=== PATIENT | female | born 2000 | race Two or more races ===

== ENCOUNTER 2020-05-03 14:00 | Inpatient (IN) | payer OTHER ==
[~2020-05-03] VITALS: Ht 170.2 cm; Wt 88.3 kg
--- NOTE | 2020-05-03 14:53 | NUR ---
INSPECTOR FILTERS: PT AMBULATORY TO ROOM FROM LOBBY WITH STEADY GAIT WITH MILL OPERATOR HELPER
[2020-05-03 15:14] LABS: BASOPHILS # (AUTO) 0.01 x10^3/uL (0-0.1); BASOPHILS % (AUTO) 0 % (0-1); EOSINOPHILS # (AUTO) 0.12 x10^3/uL (0-0.4); EOSINOPHILS % (AUTO) 2 % (1-7); LYMPHOCYTES # (AUTO) 1.63 x10^3/uL (1-3.4); LYMPHOCYTES % (AUTO) 23 % (22-44); MD NO; MEAN CORPUSCULAR HEMOGLOBIN 29.5 pg (27.0-34.8); MEAN CORPUSCULAR HGB CONC 33.1 g/dL (32.4-35.8); MEAN PLATELET VOLUME 8.9 fL (7.4-10.4); MONOCYTES # (AUTO) 0.58 x10^3/uL (0.2-0.8); MONOCYTES % (AUTO) 8 % (2-9); NEUTROPHILS # (AUTO) 4.88 x10^3/uL (1.8-6.8); NEUTROPHILS % (AUTO) 68 % (42-75); PLATELET COUNT 382 x10^3/uL (130-400); RED BLOOD COUNT 4.43 x10^6/uL (3.82-5.3); RED CELL DISTRIBUTION WIDTH 15.6 % (9.6-15.2)
[2020-05-03 15:16] LABS: INTERNATIONAL NORMALIZED RATIO 1.06 (0.93-1.1); PROTHROMBIN TIME 10.9 Seconds (9.6-11.5)
--- NOTE | 2020-05-03 15:16 | NUR ---
PT REPORTS ABOUT 3 WEEKS AGO SHE HAD PAIN IN HER EPIGASTRIC REGION. ON 04/21/2020 SHE WENT TO [facility] DUE TO HER SKIN HAVING A YELLOW COLOR AND THE PAIN, SHE REPORTS THEY DID NOT DIAGNOSIS HER WITH ANYTHING. SINCE GOING TO [facility] SHE REPORTS SHE HAS NO PAIN BUT HER SKIN IS MORE YELLOW AND SHE FEELS ITCHY ALL OVER HER BODY. POLICY DIRECTOR IS CURRENTLY AT BEDSIDE.
[2020-05-03 15:20] LABS: ALBUMIN 2.7 g/dL (3.4-5.0); ANION GAP 6 mmol/L (5-15); CALCIUM 9.2 mg/dL (8.5-10.1); CHLORIDE 106 mmol/L (98-107)
[2020-05-03 15:26] LABS: ALANINE AMINOTRANSFERASE 70 U/L (12-78); ALKALINE PHOSPHATASE 326 U/L (45-117)
[2020-05-03 15:27] LABS: CREATININE 0.92 mg/dL (0.55-1.02)
[2020-05-03 15:28] LABS: TOTAL PROTEIN 6.9 g/dL (6.4-8.2)
[2020-05-03 15:30] LABS: BILIRUBIN,TOTAL 24.9 mg/dL (0.2-1.0)
[2020-05-03] MEDS ORDERED: SENNA/DOCUSATE TABLET PO PRN (17:30)
[2020-05-03] MEDS ORDERED: POLYETHYLENE GLYCOL 17 GM PACKET PO PRN (17:30)
[2020-05-03] MEDS ORDERED: ONDANSETRON ODT 4 MG PO PRN (17:30)
[2020-05-03] MEDS ORDERED: ONDANSETRON 2MG/ML, 2ML IVPush PRN (17:30)
--- NOTE | 2020-05-03 17:34 | NUR ---
BREAK RN: PT WENT TO MRI.
[2020-05-03 17:43] LABS: BILIRUBIN,INDIRECT 4.4 mg/dL (0.0-2.0)
[2020-05-03 17:48] LABS: BILIRUBIN, DIRECT 20.5 mg/dL (0.1-0.2)
[2020-05-03 19:52] VITALS: BP 117/64
[2020-05-04 00:32] VITALS: BP 104/60
[2020-05-04 04:04] LABS: CALCIUM 9.1 mg/dL (8.5-10.1); CHLORIDE 106 mmol/L (98-107)
[2020-05-04 04:11] LABS: ALANINE AMINOTRANSFERASE 70 U/L (12-78); ALBUMIN 2.8 g/dL (3.4-5.0); ANION GAP 9 mmol/L (5-15)
[2020-05-04 04:22] LABS: ALKALINE PHOSPHATASE 318 U/L (45-117); BILIRUBIN,INDIRECT 4.8 mg/dL (0.0-2.0)
[2020-05-04 04:35] LABS: BILIRUBIN, DIRECT 19.9 mg/dL (0.1-0.2); BILIRUBIN,TOTAL 24.7 mg/dL (0.2-1.0); TOTAL PROTEIN 6.7 g/dL (6.4-8.2)
[2020-05-04 06:31] LABS: MEAN CORPUSCULAR HEMOGLOBIN 29.9 pg (27.0-34.8); MEAN CORPUSCULAR HGB CONC 34.1 g/dL (32.4-35.8); MEAN PLATELET VOLUME 9.7 fL (7.4-10.4); PLATELET COUNT 362 x10^3/uL (130-400); RED BLOOD COUNT 4.31 x10^6/uL (3.82-5.3); RED CELL DISTRIBUTION WIDTH 15.6 % (9.6-15.2)
[2020-05-04 06:36] LABS: BASOPHILS # (AUTO) 0.03 x10^3/uL (0-0.1); BASOPHILS % (AUTO) 0 % (0-1); EOSINOPHILS # (AUTO) 0.14 x10^3/uL (0-0.4); EOSINOPHILS % (AUTO) 2 % (1-7); LYMPHOCYTES # (AUTO) 1.49 x10^3/uL (1-3.4); LYMPHOCYTES % (AUTO) 18 % (22-44); MD NO; MONOCYTES # (AUTO) 0.49 x10^3/uL (0.2-0.8); MONOCYTES % (AUTO) 6 % (2-9); NEUTROPHILS % (AUTO) 74 % (42-75)
[2020-05-04 09:14] VITALS: BP 104/55
[2020-05-04 15:40] VITALS: BP 108/65
[2020-05-04 19:08] VITALS: BP 106/63
[2020-05-05 01:09] VITALS: BP 112/71
[2020-05-05 05:39] LABS: ALBUMIN 2.5 g/dL (3.4-5.0); ANION GAP 7 mmol/L (5-15); BASOPHILS % (AUTO) 1 % (0-1); CALCIUM 8.6 mg/dL (8.5-10.1); CHLORIDE 106 mmol/L (98-107); EOSINOPHILS % (AUTO) 4 % (1-7); LYMPHOCYTES % (AUTO) 32 % (22-44); MEAN CORPUSCULAR HEMOGLOBIN 29.7 pg (27.0-34.8); MEAN CORPUSCULAR HGB CONC 34.2 g/dL (32.4-35.8); MEAN PLATELET VOLUME 8.7 fL (7.4-10.4); MONOCYTES % (AUTO) 10 % (2-9); NEUTROPHILS % (AUTO) 53 % (42-75); PLATELET COUNT 358 x10^3/uL (130-400); RED BLOOD COUNT 4.07 x10^6/uL (3.82-5.3)
[2020-05-05 05:42] LABS: ALANINE AMINOTRANSFERASE 57 U/L (12-78); ALKALINE PHOSPHATASE 285 U/L (45-117)
[2020-05-05 05:44] LABS: CREATININE 0.82 mg/dL (0.55-1.02)
[2020-05-05 05:45] LABS: TOTAL PROTEIN 6.3 g/dL (6.4-8.2)
[2020-05-05 05:46] LABS: BILIRUBIN,TOTAL 21.5 mg/dL (0.2-1.0)
[2020-05-05 05:59] LABS: MD NO
[2020-05-05] MEDS ORDERED: LIDOCAINE 1%, 10ML ONE (08:35)
[2020-05-05] MEDS ORDERED: NALOXONE 1 MG/ML, 2ML ONE (08:44)
[2020-05-05] MEDS ORDERED: MIDAZOLAM 1 MG/ML, 5ML ONE (08:44)
[2020-05-05] MEDS ORDERED: FLUMAZENIL 0.1 MG/1 ML, 5ML ONE (08:44)
[2020-05-05] MEDS ORDERED: FENTANYL PF 100 MCG/2ML ONE ×2 (08:44)
[2020-05-05 09:38] VITALS: BP 110/65
[2020-05-05 10:20] VITALS: BP 112/72
[2020-05-05 11:05] VITALS: BP 101/64
[2020-05-05 11:30] VITALS: BP 112/62
[2020-05-05 13:53] VITALS: BP 104/58
== END 2020-05-05 15:37 | disposition home or self-care (01) | DRG 446 ==
LOC: ED 15:59 → EDIP 17:52 → 3N 19:28 → DCLOUNGE 05-05 15:30
PROVIDERS: ADMIT Family Medicine; ATTEND Family Medicine
PROC: 0FB03ZX Excision of Liver, Percutaneous Approach, Diagnostic (ICD-10-PCS; principal; 2020-05-05)
DX: K83.1 Obstruction of bile duct (principal); E80.6 Other disorders of bilirubin metabolism; N93.9 Abnormal uterine and vaginal bleeding, unspecified; E66.9 Obesity, unspecified; Z68.30 Body mass index [BMI] 30.0-30.9, adult; L29.9 Pruritus, unspecified
CPT/HCPCS: 36415; J3490; 47000; 74181; 76700; 76942; 80048; 80053; 80076; 82247; 82248; 83690; 84443; 84703; 85025; 85610; 85730; 86376; 86644; 86645; 86664; 86665; 86727; 88307; 88313; 93975; 99156; 99285; G0378; J2250; J3010; J2310

== ENCOUNTER 2020-06-05 09:03 | Day surgery (SDC) | payer OTHER ==
[~2020-06-05] VITALS: Ht 170.2 cm; Wt 84.6 kg
[2020-06-05 09:22] VITALS: BP 113/71
[2020-06-05] MEDS ORDERED: URSO500T9 PO (09:25)
[2020-06-05] MEDS ORDERED: LIDOCAINE-MPF 1%, 2ML INFIL ONE (09:30)
[2020-06-05] MEDS ORDERED: LACTATED RINGERS 1,000 ML IV SCH (09:30)
[2020-06-05] MEDS ORDERED: CHLORHEXIDINE 15 ML UDC MM ONE (09:30)
[2020-06-05] MEDS ORDERED: CHLORHEXIDINE 15 ML UDC ONE (09:32)
[2020-06-05] MEDS ORDERED: MIDAZOLAM 1 MG/ML, 2ML ONE (10:33)
[2020-06-05] MEDS ORDERED: FENTANYL PF 100 MCG/2ML ONE (10:33)
[2020-06-05] MEDS ORDERED: ONDANSETRON 2MG/ML, 2ML ONE (11:18)
[2020-06-05] MEDS ORDERED: PROPOFOL 10 MG/ML, 20ML ONE (11:18)
[2020-06-05] MEDS ORDERED: CEFAZOLIN 1,000 MG ONE (11:18)
[2020-06-05] MEDS ORDERED: SUCCINYLCHOLINE 20 MG/ML, 10ML ONE (11:18)
[2020-06-05] MEDS ORDERED: DEXAMETHASONE 4 MG/ML, 1ML ONE (11:18)
[2020-06-05] MEDS ORDERED: MEPERIDINE/PF 25MG/0.5ML IVPush PRN (12:00)
[2020-06-05] MEDS ORDERED: OXYcodone 5 MG/5 ML ORAL.SOL UDC PO PRN (12:00)
[2020-06-05] MEDS ORDERED: DIPHENHYDRAMINE 50 MG/ML, 1ML IVPush PRN (12:00)
[2020-06-05] MEDS ORDERED: DIAZEPAM 5 MG/ML, 2ML IVPush PRN (12:00)
[2020-06-05] MEDS ORDERED: ONDANSETRON 2MG/ML, 2ML IVPush PRN (12:00)
[2020-06-05] MEDS ORDERED: FENTANYL PF 100 MCG/2ML IV PRN (12:00)
[2020-06-05] MEDS ORDERED: HYDROmorphone 1 MG/ML, 1ML INJ IVPush PRN (12:00)
[2020-06-05] MEDS ORDERED: PROMETHAZINE 25 MG/ML, 1ML IVPush PRN (12:00)
[2020-06-05] MEDS ORDERED: OMNIPAQUE 350 MG/ML, 50 ML BOTTLE ONE (13:00)
== END 2020-06-05 13:45 | disposition home or self-care (01) ==
LOC: OUT 09:03
PROVIDERS: ATTEND Internal Medicine Gastroenterology
DX: K75.89 Other specified inflammatory liver diseases (principal); Z20.828 Contact with and (suspected) exposure to other viral communicable diseases; K83.01 Primary sclerosing cholangitis; K80.51 Calculus of bile duct without cholangitis or cholecystitis with obstruction; K31.7 Polyp of stomach and duodenum; K21.9 Gastro-esophageal reflux disease without esophagitis
CPT/HCPCS: 36415; 43239; 43251; 43259; 43264; 74328; 84703; 87635; 88305; C1769; J0330; J0690; J1100; J2250; J2405; J2704; J3010; J7120; Q9967